=== PATIENT | female | born 1960 | race African-American/Black ===

== ENCOUNTER → 2019-11-14 | Outpatient (CLI) | payer BC ==
[2017-07-24 11:09] VITALS: BP 118/68
[~2019-11-14] MED LIST: ALBU2.5V8 INH; CHLO25TA10 PO; FLUT9.9S NS; HYDR-2765 PO; IPRA3AMP29 NEB; MELO7.5T29 PO; METH-364 PO; MOME13HF IH; MONT10TA49 PO; PANT40TA77 PO; POTA10TA12 PO
--- NOTE | 2019-11-14 18:45 | KCIC ---
Bilateral digital screening mammograms with 3-D tomosynthesis: Reason for examination: Routine baseline screening. Bilateral mammograms in CC and oblique projections were obtained with 2-D imaging and 3-D tomosynthesis imaging on a Siemens Inspiration unit and reviewed on the workstation. Interpretation was made with the benefit of CAD. The skin and nipples show no abnormalities. No abnormal axillary lymph nodes are seen. The breast parenchyma shows scattered fatty and fibroglandular density. (Breast density: Category B.) There are no dominant masses, suspicious calcifications or architectural distortion. Benign calcifications are present. Impression: No evidence of malignancy. Recommend routine screening. BI-RAD Category 2: Benign. "Our facility is accredited by the [employer] Mammography [employer]." This patient's information has been entered into a reminder system for the patient to be notified with the results of her examination and a target date for the next mammogram. Electronically signed by: Melissa Coon MD (11/14/2019 6:43 PM) [id number]
== END | disposition home or self-care (01) ==
LOC: KCIC MAMMO 10:14
PROVIDERS: ATTEND Family Medicine
DX: Z12.31 Encounter for screening mammogram for malignant neoplasm of breast (principal); N64.89 Other specified disorders of breast
CPT/HCPCS: 77063; 77067

== ENCOUNTER → 2020-03-26 | Outpatient (CLI) | payer BC ==
[2017-07-24 11:09] VITALS: BP 118/68
--- NOTE | 2020-03-26 12:42 | KCIC ---
EXAM: Lumbar spine, flexion and extension; thoracic spine, 3 views. HISTORY: Pain. COMPARISON: None. FINDINGS: Thoracic spine: 3 views of the thoracic spine are obtained. There is mild S-shaped thoracic scoliosis . There is no listhesis. There is multilevel endplate remodeling. The thoracic disc spaces are preser mario. There is mild anterolisthesis of C4 on C5 and degenerative endplate remodeling with disc space n arrowing at C5-C6. This is not formally assessed on this exam. Lumbar spine: 5 views of the lumbar spine are obtained. There are hypoplastic T12 ribs and 5 nonrib-b earing lumbar segments. There is mild lumbar dextrocurvature. There is lumbar hyperlordosis. There is grade 1 anterolisthesis of L4 and L5, measuring 3 mm. There is multilevel endplate remodeling. There is facet arthropathy at the mid lower lumbar levels. No fracture is seen. IMPRESSION: 1. Multilevel degenerative change throughout the thoracic and lumbar spine, primarily at the lower l umbar levels and described in detail above. 2. Lumbar hyperlordosis and grade 1 anterolisthesis of L4 on L5. 3. Degenerative change involving the mid and lower cervical spine, not formally assessed on this exa m. Electronically signed by: Joann Sutherland MD (03/26/2020 12:39 PM) [id number]
== END ==
LOC: KCIC 10:23
PROVIDERS: ATTEND Family Medicine
DX: M47.25 Other spondylosis with radiculopathy, thoracolumbar region (principal); M54.89 Other dorsalgia; M47.812 Spondylosis without myelopathy or radiculopathy, cervical region
CPT/HCPCS: 72072; 72110

== ENCOUNTER → 2020-05-28 | Outpatient (CLI) | payer BC ==
[2017-07-24 11:09] VITALS: BP 118/68
[~2020-05-28] MED LIST changes: +IOHEXOL 300 MG/ML 100ML VIAL. IV ONE
--- NOTE | 2020-05-29 08:32 | KCIC ---
EXAM: CT Chest without IV contrast INDICATION: Reason: SOA, nonproductive cough, hx. asthma. / Spl. Instructions: 95mL Omni 300 / Histor y: TECHNIQUE: Multi-detector row CT images were acquired from the thoracic inlet through the upper abdo men without the use of IV contrast. Sagittal and coronal images were acquired from the transaxial ezra a. All CT scans performed at this facility utilize dose optimization techniques as appropriate to the exam, including the following: Automated exposure control and adjustment of the mA and/or KV accordi ng to patient size (this includes techniques or standardized protocols for targeted exams where dose is indication/reason for exam). COMPARISON: None FINDINGS: The absence of IV contrast limits evaluation of soft tissue pathology. CARDIOVASCULAR: Unremarkable although not tailored as a angiographic protocol study, there is no adrienne dence of a large central pulmonary embolus in the pulmonary arteries are not enlarged. The heart is n ormal in size. There is no pericardial effusion. No significant coronary calcifications are appreciat ed. MEDIASTINUM & CORY: No adenopathy or masses. LUNGS: Calcified granuloma in the right upper lobe. Lungs otherwise clear with no focal infiltrates, nodules or masses. PLEURAL SPACE: No pleural effusions or pneumothorax. OSSEOUS & SOFT TISSUE: Unremarkable ABDOMEN: The visualized portions of the upper abdomen are unremarkable. IMPRESSION: Evidence of previous granulomatous disease as demonstrated by calcified granuloma the right lung apex . Otherwise unremarkable CT chest. Electronically signed by: Yasmeen Stock MD (05/29/2020 8:30 AM) [id number]
== END ==
LOC: KCIC CT 12:39
PROVIDERS: ATTEND Family Medicine
DX: J98.4 Other disorders of lung (principal); R06.02 Shortness of breath; R05 Cough; Z87.75 Personal history of (corrected) congenital malformations of respiratory system
CPT/HCPCS: 71260; Q9967

== ENCOUNTER → 2021-07-13 | Outpatient (CLI) | payer BC ==
[2017-07-24 11:09] VITALS: BP 118/68
[~2021-07-13] MED LIST changes: -IOHEXOL 300 MG/ML 100ML VIAL. IV ONE; -METH-364 PO; +METH10TA32 PO
--- NOTE | 2021-07-13 16:58 | KCIC ---
EXAM: XR LUMBAR SPINE 4+V 07/13/2021 11:21 AM CLINICAL INDICATION: Chronic lower back pain, no radiculopathy. COMPARISON: Lumbar spine radiograph 03/26/2020 TECHNIQUE: AP, right and left oblique, lateral, and coned-down lateral views of the lumbar spine FINDINGS: In keeping with the prior report, there are hypoplastic ribs at T12 and 5 nonrib-bearing l umbar vertebral bodies. There is 7 mm anterolisthesis of L4 on L5, increased from 2019. No acute frac ture. Mild disc space narrowing at L5-S1. Tiny anterior osteophytes at multiple levels. There is lowe r lumbar facet arthrosis. IMPRESSION: 1. Degenerative disc disease with increased anterolisthesis of L4 on L5. 2. Lower lumbar facet arthrosis. Electronically signed by: Delphine Bernal MD (07/13/2021 4:55 PM) [id number]
== END ==
LOC: KCIC 11:18
PROVIDERS: ATTEND Family Medicine
DX: M51.36 Other intervertebral disc degeneration, lumbar region (principal); M43.16 Spondylolisthesis, lumbar region; M48.07 Spinal stenosis, lumbosacral region; M47.816 Spondylosis without myelopathy or radiculopathy, lumbar region
CPT/HCPCS: 72110